=== PATIENT | female | born 1990 | race Caucasian/White ===

== ENCOUNTER 2017-11-22 20:05 | Inpatient (IN) ==
[2017-11-22] MEDS ORDERED: Lidocaine 1% Inj 50 ML Vial INFILTRATN ONE (20:22)
[2017-11-22] MEDS ORDERED: Tetanus/Diphtheria Toxoid Adult Vaccine Inj 0.5 ML Vial IM ONE (20:22)
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
[2017-11-22 21:33] LABS: Baso # (Auto) 0.1 th/mm3 (0.0-0.2); Baso % (Auto) 0.4 % (0.0-2.0); Eos % (Auto) 8.9 % (0.0-4.0); Hemoglobin 12.4 gm/dL (11.6-15.3); Lymph # (Auto) 2.1 th/mm3 (1.0-4.8); Lymph % (Auto) 17.9 % (9.0-44.0); Mean Corpuscular HGB Conc 34.3 % (32.0-36.0); Mean Corpuscular Volume 84.5 fL (80.0-100.0); Mean Platelet Volume 7.8 fL (7.0-11.0); Mono # (Auto) 0.8 th/mm3 (0.0-0.9); Mono % (Auto) 6.5 % (0.0-8.0); Neut # (Auto) 7.7 th/mm3 (1.8-7.7); Neut % (Auto) 66.3 % (16.0-70.0); Platelet Count 326 th/mm3 (150-450); Red Blood Count 4.26 mil/mm3 (4.00-5.30); White Blood Count 11.6 th/mm3 (4.0-11.0)
[2017-11-22 21:53] LABS: Calcium 8.8 mg/dL (8.5-10.1); Carbon Dioxide 22.6 meq/L (21.0-32.0); Potassium 3.9 meq/L (3.5-5.1)
[2017-11-22] MEDS ORDERED: Morphine Sulfate Inj 2 MG/ML Vial IV.PUSH ONE (23:01)
[2017-11-22] MEDS ORDERED: Sod Chloride 0.9% Inj 1,000 ML IV.SIG ONE (23:01)
[2017-11-22] MEDS ORDERED: Morphine Inj 4 MG/ML Vial ONE (23:40)
[2017-11-23] MEDS ORDERED: Morphine Sulfate Inj 2 MG/ML Vial IV.PUSH PRN (00:19)
[2017-11-23] MEDS ORDERED: Acetaminophen 325 MG Tablet PO PRN (00:32)
[2017-11-23] MEDS ORDERED: Bisacodyl 10 MG Supp RECTAL PRN (00:32)
[2017-11-23] MEDS ORDERED: Chlorhexidine Gluconate 2% 1 Pack (2 Cloths) TOPICAL SCH (02:45)
[2017-11-23] MEDS ORDERED: Metoprolol Tartrate 25 MG Tablet PO SCH (02:45)
[2017-11-23] MEDS ORDERED: Sodium Chlor 0.9% Inj 500 ML IV.SIG SCH (03:00)
[2017-11-23] MEDS: Morphine Inj 4 MG/ML Vial IV.PUSH PRN ×3 (03:40→20:23)
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
[2017-11-23] MEDS ORDERED: ceFAZolin 2 GM Premix Inj 2 GM/50 ML PIGGYBACK IV.SIG ONE (07:46)
[2017-11-23] MEDS: Senna/Docusate Sodium 8.6/50 MG Tablet PO SCH ×2 (08:20→20:24)
[2017-11-23] MEDS ORDERED: Dextrose 50% in Water 50 ML Vial IV.PUSH PRN (08:23)
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
[2017-11-23] MEDS ORDERED: Glycopyrrolate Inj 1 MG/5 ML Syringe IV.PUSH ONE (12:00)
[2017-11-23] MEDS ORDERED: Lidocaine PF 1% Inj 5 ML Syringe INFILTRATN ONE (12:00)
[2017-11-23] MEDS ORDERED: Neostigmine Inj 5 MG/5 ML Syringe IV.PUSH ONE (12:00)
[2017-11-23] MEDS ORDERED: Phenylephrine/NS 1000 MCG/10ML Syringe IV.PUSH ONE (12:00)
[2017-11-23] MEDS ORDERED: Bupivacaine/Epinephrine Inj 0.25% 50 ML Vial ONE (14:08)
--- NOTE | 2017-11-23 14:33 | P.OP ---
- Preoperative Diagnosis (1) Left radial fracture - Postoperative Diagnosis (1) Left radial fracture Date of procedure: 11/23/17 Procedure: Open reduction internal fixation left radius fracture Implants: Synthes 2.7 LCP plate Anesthesia: GETA Surgeon: Adelfo Garza MD Bridal Stylist Sales Consultant: Dulce Miranda (Ashley) (Dulce Miranda (Ashley), PA-CThe surgical procedure was assisted by my physician's assistant bookkeeper. Her presence was necessary throughout the case for manipulation and positioning of the surgical extremity. My PA was assisting me throughout the duration of this procedure. The skill set of the physician assistant bookkeeper was medically necessary to complete this procedure. During the surgical case the neurosurgical physician assistant was working at the back table and the physician assistant bookkeeper was directly assisting me.) Estimated blood loss (mL): 25 Pathology: none sent Operation and Findings: The patient was taken to the operative suite and after undergoing an adequate level of general anesthesia was kept supine on the operating table. Preoperative antibiotics consisted of Ancef 2 g IV. The left upper extremity was prepped and draped in usual sterile fashion with alcohol and Hibiclens. A standard dorsal approach to the midshaft of the radius was made with incision extending approximately 7 cm. This was carried down through skin and subcutaneous tissue with a knife. The interval between the extensor carpi radialis brevis and extensor digitorum, and this was identified and developed. This brought the fracture site interview. Subperiosteal dissection was carried out exposing the fracture site and the fracture site was curetted of all fracture hematoma. The fracture was reduced. A 7 hole 2.7 LCP plate was then applied to the dorsal surface. These screw holes were drilled and the appropriate length screws placed. 6 cortices were captured proximally and distally. The position of the fracture reduction and placement of the internal fixation were checked in both the AP and lateral planes with the C-arm. The wound was thoroughly irrigated. It was closed in layers utilizing 2-0 Vicryl suture in the subcutaneous tissue, 3-0 Monocryl on the subcuticular tissue and Steri-Strips on the skin. Sterile dressings were applied, the patient was placed into a splint, awakened, transferred to the hospital bed and taken to the recovery room in stable condition.
--- NOTE | 2017-11-23 14:42 | XR ---
EXAM DATE: 11/23/2017 2:39 PM EDT AGE/SEX: 26 years / Female INDICATIONS: Open reduction internal fixation of the left forearm. CLINICAL DATA: This is the patient's subsequent encounter. Patient reports that signs and symptoms h ave been present for 2 days and indicates a pain score of Nonresponsive. MEDICAL/SURGICAL HISTORY: None. None. COMPARISON: [facility] – [place] 2V, 11/22/2017. . CONCLUSION: Fluoroscopic images during placement of a plate and screws along the left radius Electronically signed by: Aurelio Winter MD 11/23/2017 2:41 PM EDT
[2017-11-23] MEDS ORDERED: *Meperidine Inj 25 MG/ML Vial PERIprocedural Use ONLY ONE (14:59)
[2017-11-23] MEDS ORDERED: *morphine SULFATE 4 MG/ML PERIprocedure ONLY ONE ×2 (15:14→15:26)
[2017-11-23] MEDS ORDERED: ceFAZolin 2 GM Premix Inj 2 GM/50 ML PIGGYBACK IV.SIG SCH (16:00)
[2017-11-23] MEDS: Sod Chloride 0.9% Inj 1,000 ML IV.CONT SCH ×2 (19:19→22:31)
[2017-11-23] MEDS: ceFAZolin 2 GM Premix Inj 2 GM/50 ML PIGGYBACK IV.SIG SCH (20:25)
[2017-11-24] MEDS: Temazepam 15 MG Capsule PO PRN (00:40)
[2017-11-24] MEDS: ceFAZolin 2 GM Premix Inj 2 GM/50 ML PIGGYBACK IV.SIG SCH ×2 (05:19→12:34)
[2017-11-24] MEDS: Morphine Inj 4 MG/ML Vial IV.PUSH PRN ×3 (06:34→18:33)
[2017-11-24] MEDS: Sod Chloride 0.9% Inj 1,000 ML IV.CONT SCH ×2 (06:42→19:28)
[2017-11-24 08:30] LABS: Baso # (Auto) 0.1 th/mm3 (0.0-0.2); Baso % (Auto) 0.4 % (0.0-2.0); Eos % (Auto) 0.3 % (0.0-4.0); Hemoglobin 10.9 gm/dL (11.6-15.3); Lymph # (Auto) 2.6 th/mm3 (1.0-4.8); Lymph % (Auto) 19.5 % (9.0-44.0); Mean Corpuscular HGB Conc 33.9 % (32.0-36.0); Mean Corpuscular Hemoglobin 28.8 pg (27.0-34.0); Mono # (Auto) 1.1 th/mm3 (0.0-0.9); Mono % (Auto) 8.3 % (0.0-8.0); Neut # (Auto) 9.4 th/mm3 (1.8-7.7); Neut % (Auto) 71.5 % (16.0-70.0); Platelet Count 271 th/mm3 (150-450); Red Blood Count 3.76 mil/mm3 (4.00-5.30); Red Cell Distribution Width 12.9 % (11.6-17.2); White Blood Count 13.1 th/mm3 (4.0-11.0)
[2017-11-24 09:04] LABS: Albumin 2.4 g/dL (3.4-5.0); Anion Gap 12 meq/L (5-15); Aspartate Aminotransferase 11 U/L (15-37); Blood Urea Nitrogen 6 mg/dL (7-18); Calcium 8.2 mg/dL (8.5-10.1); Carbon Dioxide 21.2 meq/L (21.0-32.0); Chloride 111 meq/L (98-107); Glomerular Filtration Rate 88 mL/min (>89); Glucose,Random 100 mg/dL (74-106); Potassium 3.7 meq/L (3.5-5.1); Sodium 144 meq/L (136-145)
[2017-11-24 09:08] LABS: Alanine Aminotransferase 13 U/L (10-53); Alkaline Phosphatase 44 U/L (45-117); Total Protein 5.4 g/dL (6.4-8.2)
[2017-11-24] MEDS: Senna/Docusate Sodium 8.6/50 MG Tablet PO SCH ×2 (09:20→20:14)
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
--- NOTE | 2017-11-24 14:26 | P.PNOP ---
Subjective Interval history: Open reduction internal fixation left radius fracture POD #1 Patient is awake and alert. She states that she did have a moderate amount of pain at the surgical site last night and it has been waxing and waning today. She does express interest in being discharged to home, she states she does have the support of her mother. No other complaints Physical Exam Vital signs: Vital Signs 11/23/17 14:57 11/23/17 15:15 11/23/17 15:30 Temperature 97.6 F 97.6 F Pulse Rate 97 H 94 H 91 H Respiratory Rate 20 20 20 Blood Pressure 108/56 L 108/55 L 106/55 L Pulse Oximetry 100 11/23/17 15:40 11/23/17 16:00 11/23/17 20:00 Temperature 97.6 F 98.2 F 98.3 F Pulse Rate 91 H 78 88 Respiratory Rate 20 12 20 Blood Pressure 106/55 L 105/60 112/57 L Pulse Oximetry 100 96 96 11/23/17 20:41 11/23/17 23:57 11/24/17 00:00 Temperature 98.4 F Pulse Rate 98 H 82 101 H Respiratory Rate 20 Blood Pressure 111/56 L Pulse Oximetry 96 11/24/17 04:00 11/24/17 08:00 11/24/17 12:00 Temperature 98.2 F 98.8 F 98.7 F Pulse Rate 87 81 88 Respiratory Rate 20 12 12 Blood Pressure 116/62 116/56 L 115/72 Pulse Oximetry 96 95 96 Intake & Output 11/23/17 11/24/17 11/24/17 18:59 06:59 18:59 Intake Total 1300 / 1300 1640 / 1640 Output Total 50 / 50 Balance 1250 / 1250 1640 / 1640 Weight 72.9 kg Intake: IV 100 / 100 Ancef 2 GM Premix Inj 2 gm In 100 / 100 50 ml @ 100 mls/hr IV.SIG Q8H YUNIOR Rx#:[id number] Oral 1540 / 1540 Anesthesia Amount 1300 / 1300 Output: Estimated Blood Loss 50 / 50 Other: # Voids 4 4 Date of Last Bowel Movement 11/22/17 11/22/17 # Bowel Movements 2 Narrative: Gabriel wrap was loosened, no change dressing had very minimal saturation noted, mild amount of swelling over distal digits, freely able to move distal digits, Gabriel wrap was rewrapped, good cap refill Results - Labs CBC & Chem 7: 11/24/17 06:30 11/24/17 06:30 Laboratory Results - last 24 hr 11/24/17 11/24/17 06:30 06:30 WBC 13.1 H RBC 3.76 L Hgb 10.9 L Hct 32.0 L MCV 85.0 MCH 28.8 MCHC 33.9 RDW 12.9 Plt Count 271 MPV 8.0 Neut % (Auto) 71.5 H Lymph % (Auto) 19.5 [place] % (Auto) 8.3 H Eos % (Auto) 0.3 Baso % (Auto) 0.4 Neut # (Auto) 9.4 H Lymph # (Auto) 2.6 [place] # (Auto) 1.1 H Eos # (Auto) 0.0 Baso # (Auto) 0.1 WBC Differential . Differential Comment Auto diff final Sodium 144 Potassium 3.7 Chloride 111 H Carbon Dioxide 21.2 Anion Gap 12 BUN 6 L Creatinine 0.80 Estimated GFR 88 L Random Glucose 100 Calcium 8.2 L Total Bilirubin 0.2 AST 11 L ALT 13 Alkaline Phosphatase 44 L Total Protein 5.4 L Albumin 2.4 L - Imaging Impressions Forearm X-Ray 11/23/17 00:00 CONCLUSION: Fluoroscopic images during placement of a plate and screws along the left radius Impressions Cervical Spine CT 11/22/17 20:22 CONCLUSION: 1. No acute fracture or prevertebral soft tissue swelling. 2. Minimal scattered atelectasis and/or infiltrates within the lung apices. Face CT 11/22/17 20:22 CONCLUSION: 1. Minimally displaced right orbital floor fracture which is displaced approximately 1 mm 2. Subtle fracture involving the nasal bones. Forearm X-Ray 11/22/17 20:22 CONCLUSION: Acute displaced fracture involving the midshaft of the left radius. Head CT 11/22/17 20:22 CONCLUSION: 1. Negative CT Head non contrast. Pelvis X-Ray 11/22/17 20:22 CONCLUSION: Negative examination. Chest X-Ray 11/22/17 20:28 CONCLUSION: Negative examination. Thoracic Spine X-Ray 11/22/17 20:28 CONCLUSION: Negative examination. Forearm X-Ray 11/23/17 00:00 CONCLUSION: Fluoroscopic images during placement of a plate and screws along the left radius - Procedures Open reduction internal fixation left radius fracture 7/7/18 Assessment and Plan - Ortho Post Op Day # 1 - Assessment and Plan Open reduction internal fixation left radius fracture POD #1 Ortho status stable Nonweightbearing left upper extremity No change dressing, okay to loosen Gabriel wrap Oral pain medication was changed from [place] to Percocet Would recommend discharged home on Percocet per medicine MD Cleared for discharge from an orthopedic standpoint to home Follow up in 1-[address] Garza or myself
[2017-11-25] MEDS: Temazepam 15 MG Capsule PO PRN (00:58)
[2017-11-25] MEDS: Morphine Inj 4 MG/ML Vial IV.PUSH PRN (00:58)
[2017-11-25] MEDS: Sod Chloride 0.9% Inj 1,000 ML IV.CONT SCH (05:59)
[2017-11-25 08:50] LABS: Baso % (Auto) 0.5 % (0.0-2.0); Eos # (Auto) 0.3 th/mm3 (0.0-0.4); Eos % (Auto) 3.7 % (0.0-4.0); Hematocrit 31.2 % (35.0-46.0); Hemoglobin 10.7 gm/dL (11.6-15.3); Lymph # (Auto) 3.4 th/mm3 (1.0-4.8); Lymph % (Auto) 36.9 % (9.0-44.0); Mean Corpuscular HGB Conc 34.2 % (32.0-36.0); Mean Corpuscular Hemoglobin 29.3 pg (27.0-34.0); Mean Corpuscular Volume 85.4 fL (80.0-100.0); Mean Platelet Volume 8.1 fL (7.0-11.0); Mono # (Auto) 0.7 th/mm3 (0.0-0.9); Mono % (Auto) 7.4 % (0.0-8.0); Neut # (Auto) 4.8 th/mm3 (1.8-7.7); Neut % (Auto) 51.5 % (16.0-70.0); Platelet Count 226 th/mm3 (150-450); Red Blood Count 3.65 mil/mm3 (4.00-5.30); Red Cell Distribution Width 12.9 % (11.6-17.2); White Blood Count 9.2 th/mm3 (4.0-11.0)
[2017-11-25] MEDS: Senna/Docusate Sodium 8.6/50 MG Tablet PO SCH (08:57)
[2017-11-25 09:00] LABS: Anion Gap 11 meq/L (5-15); Blood Urea Nitrogen 8 mg/dL (7-18); Carbon Dioxide 23.5 meq/L (21.0-32.0); Chloride 110 meq/L (98-107); Glomerular Filtration Rate Greater Than 89 mL/min (>89); Glucose,Random 97 mg/dL (74-106); Potassium 3.4 meq/L (3.5-5.1); Sodium 144 meq/L (136-145)
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
--- NOTE | 2017-11-25 17:00 | P.PNOP ---
Subjective Interval history: Pt awake and alert. Walking around room organizing discharge plans. Admits pain is under control. no other complaints. Physical Exam Vital signs: Vital Signs 11/24/17 17:24 11/24/17 20:00 11/25/17 00:00 Temperature 98.2 F 98.8 F Pulse Rate 97 H 83 Respiratory Rate 18 18 18 Blood Pressure 132/73 117/64 Pulse Oximetry 98 99 11/25/17 04:00 11/25/17 08:00 11/25/17 11:42 Temperature 98.2 F 99.0 F 97.8 F Pulse Rate 80 64 74 Respiratory Rate 18 20 20 Blood Pressure 98/55 L 108/62 122/61 Pulse Oximetry 99 97 99 Intake & Output 11/24/17 11/25/17 11/25/17 18:59 06:59 18:59 Intake Total 2500 / 2500 Balance 2500 / 2500 Weight 72.9 kg Intake: IV 1000 / 1000 LR 1000 mL Inj 1,000 ML @ 30 1000 / 1000 mls/hr IV.SIG .Q24H YUNIOR Rx#: [id number] Oral 1500 / 1500 Other: # Voids 5 5 Date of Last Bowel Movement 11/24/17 # Bowel Movements 1 Narrative: Dressing dry and intact. Splint and sling in place. Tender to palpation with mild swelling around incision site. Appropriate range of motion expected post operatively. Freely able to move distal digits. Good cap refill. 2+ pedal pulses. Neurovascular intact. Results - Labs CBC & Chem 7: 11/25/17 06:25 11/25/17 06:25 Laboratory Results - last 24 hr 11/25/17 11/25/17 06:25 06:25 WBC 9.2 RBC 3.65 L Hgb 10.7 L Hct 31.2 L MCV 85.4 MCH 29.3 MCHC 34.2 RDW 12.9 Plt Count 226 MPV 8.1 Neut % (Auto) 51.5 Lymph % (Auto) 36.9 [place] % (Auto) 7.4 Eos % (Auto) 3.7 Baso % (Auto) 0.5 Neut # (Auto) 4.8 Lymph # (Auto) 3.4 [place] # (Auto) 0.7 Eos # (Auto) 0.3 Baso # (Auto) 0.0 WBC Differential . Differential Comment Auto diff final Sodium 144 Potassium 3.4 L Chloride 110 H Carbon Dioxide 23.5 Anion Gap 11 BUN 8 Creatinine 0.70 Estimated GFR Greater than 89 Random Glucose 97 Calcium 8.0 L - Procedures Open reduction internal fixation left radius fracture 11/23/17 Assessment and Plan - Assessment and Plan Open reduction internal fixation left radius fracture POD #2 Ortho status stable Nonweightbearing left upper extremity No change dressing, okay to loosen Gabriel wrap/splint if needed at home, keep dry Cleared for discharge from an orthopedic standpoint to home Follow up in 1-[address] Garza or myself
== END 2017-11-25 19:13 | disposition home or self-care (01) ==
LOC: NEPE 20:05 → N06 20:05 → NEDA 20:05 → N06 11-23 01:30
PROVIDERS: ADMIT Hospitalist; ATTEND Hospitalist